=== PATIENT | male | born 2000 | race Hispanic/Latino ===

== ENCOUNTER 2022-09-05 03:30 | Emergency (ER) | payer SELFPAY ==
[2022-09-05] MEDS ORDERED: Ketorolac Tromethamine 30 MG/ML VIAL ONE (04:01)
== END 2022-09-05 04:07 | disposition home or self-care (01) ==
LOC: CSHERS 03:30
DX: S93.401A Sprain of unspecified ligament of right ankle, initial encounter (principal); J45.909 Unspecified asthma, uncomplicated; X50.9XXA Other and unspecified overexertion or strenuous movements or postures, initial encounter; Y93.67 Activity, basketball
CPT/HCPCS: 96372; J1885

== ENCOUNTER 2023-09-04 10:44 | Emergency (ER) | payer SELFPAY ==
[2023-09-04 11:43] LABS: Influenza A by NAA Not Detected (NotDetected); Influenza B by NAA Not Detected (NotDetected); SARS-CoV-2 NAA Rapid Test Not Detected (NotDetected)
[2023-09-04] MEDS ORDERED: Ibuprofen 200 MG TAB ONE (12:14)
== END 2023-09-04 12:26 | disposition home or self-care (01) ==
LOC: CSHERS 10:44
DX: J06.9 Acute upper respiratory infection, unspecified (principal); Z55.6 Problems related to health literacy
CPT/HCPCS: 99283

== ENCOUNTER 2024-02-19 22:03 | Emergency (ER) | payer SELFPAY ==
[2024-02-19] MEDS ORDERED: Acetaminophen 500 MG TAB ONE (23:59)
[2024-02-19] MEDS ORDERED: diphenhydrAMINE 50 MG/ML VIAL ONE (23:59)
[2024-02-19] MEDS ORDERED: Prochlorperazine 10 MG/2 ML VIAL ONE (23:59)
[2024-02-20 00:41] LABS: #Basophils 0.07 10x3/uL (0.0-0.2); #Eosinophils 0.26 10x3/uL (0.0-0.5); #Monocytes 0.79 10x3/uL (0.0-1.1); #Neutrophils 4.63 10x3/uL (1.5-8.4); %Basophils 0.8 % (0.0-2.0); %Eosinophils 2.9 % (0.0-6.0); %Monocytes 8.9 % (0.0-10.0); %Neutrophils 52.2 % (40.0-75.0); ALT (SGPT) 18 U/L (8-55); AST (SGOT) 17 U/L (5-34); Albumin 3.5 g/dL (3.5-5.0); Alkaline Phosphatase 63 U/L (40-110); Anion Gap 11 mmol/L (10-20); BUN (Urea Nitrogen) 20 mg/dL (8.9-20.6); Bilirubin, Total 0.2 mg/dL (0.2-1.2); Calc. Creatinine Clearance 0 mL/min (70-130); Calcium 9.1 mg/dL (7.8-10.44); Carbon Dioxide 26 mmol/L (22-29); Chloride 107 mmol/L (98-107); Estimated GFR 133; Glucose 95 mg/dL (70-105); Hematocrit 35.9 % (38.8-50.0); Hemoglobin 11.9 g/dL (13.5-17.5); Mean Corpuscular HGB CONC 33.1 g/dL (32.0-36.0); Mean Corpuscular Hemoglobin 28.2 pg (27.0-33.0); Mean Corpuscular Volume 85.1 fL (81.2-95.1); Mean Platelet Volume 9.5 fL (7.4-10.4); Platelet Count 297 10x3/uL (150-450); Protein, Total 6.5 g/dL (6.0-8.3); RBC Distribution Width 13.5 % (11.5-14.5); Red Blood Cell (RBC) Count 4.22 10x6/uL (4.32-5.72); Sodium 140 mmol/L (136-145); White Blood Cell (WBC) Count 8.9 10x3/uL (3.5-10.5)
== END 2024-02-20 03:00 | disposition home or self-care (01) ==
LOC: CSHERS 22:03
DX: R51.9 Headache, unspecified (principal); Z55.0 Illiteracy and low-level literacy
CPT/HCPCS: 70496; 70498; 80053; 85025; 96361; 96374; 96375; J0780; J1200